=== PATIENT | male | born 1990 | race Two or more races ===

== ENCOUNTER 2020-04-03 06:27 | Emergency (ER) | payer OTHER ==
[~2020-04-03] VITALS: Ht 175.3 cm; Wt 56.7 kg
[2020-04-03 06:27] VITALS: BP 124/69
[2020-04-03] MEDS ORDERED: LIDOCAINE 1%-EPI 1:100,000 20 ML VIAL ONE (06:47)
[2020-04-03] MEDS ORDERED: TDAP [DIPH/PERTUSSIS/TET] 0.5 ML VIAL IM ONE ×2 (07:00→07:01)
--- NOTE | 2020-04-03 07:21 | NUR ---
BANDAGED WITH VINITA WRAP AND NON-ADHERENT DRESSING.
--- NOTE | 2020-04-03 07:22 | NUR ---
Patient discharged to home in stable condition. Written and verbal after care instructions given. Patient verbalizes understanding of instruction.
== END 2020-04-03 07:22 | disposition home or self-care (01) ==
LOC: ER 06:27
DX: S61.512A Laceration without foreign body of left wrist, initial encounter (principal); W01.110A Fall on same level from slipping, tripping and stumbling with subsequent striking against sharp glass, initial encounter; Y93.89 Activity, other specified; Y92.89 Other specified places as the place of occurrence of the external cause; Y99.8 Other external cause status
CPT/HCPCS: 12002; 90471; 90715; 99283; A6403; J3490

== ENCOUNTER 2021-03-01 20:42 | Emergency (ER) | payer OTHER ==
[~2021-03-01] VITALS: Ht 180.3 cm; Wt 59.0 kg
--- NOTE | 2021-03-01 20:45 | NUR ---
PT BIBS C/O L LEG/ANKLE/MARIE PAIN X 1 [employer]. PT STATES HE WORKS AT [employer] WHICH INVOLVES STANDING FOR LONG PERIODS. PT IS AAO X 4, BREATHING EVEN AND UNLABORED, NO SIGN OF ACUTE DISTRESS. SEEN AND EXAMINED BY DR ADAME. WILL CONTINUE TO MONITOR AND CARRY OUT MD ORDERS.
[2021-03-01] MEDS ORDERED: IBUP-1955 PO (21:16)
--- NOTE | 2021-03-01 22:00 | NUR ---
Patient discharged to home in stable condition. Written and verbal after care instructions given. Patient verbalizes understanding of instruction. Pt ambulatory with a steady gait
[2021-03-01 23:08] VITALS: BP 130/97
== END 2021-03-01 22:00 | disposition home or self-care (01) ==
LOC: ER 20:49
DX: S86.892A Other injury of other muscle(s) and tendon(s) at lower leg level, left leg, initial encounter (principal); M77.52 Other enthesopathy of left foot and ankle; X58.XXXA Exposure to other specified factors, initial encounter; Y93.89 Activity, other specified; Y92.89 Other specified places as the place of occurrence of the external cause; Y99.8 Other external cause status